=== PATIENT | female | born 1975 | race Caucasian/White ===

== ENCOUNTER 2017-01-05 15:12 | Inpatient (IN) | payer OTHER ==
[~2017-01-05] VITALS: Ht 175.3 cm; Wt 73.3 kg
[2017-01-05 15:44] LABS: BASOPHIL % 0.4 % (0-2); PLATELET COUNT 228 x10^3mcL (130-400); RED CELL DISTRIBUTION WIDTH 13.5 % (11.5-14.5)
[2017-01-05 16:16] LABS: microscopic required? YES; urine erythrocyte 1+ (NEGATIVE)
[2017-01-05 16:31] LABS: CALCIUM 8.7 mg/dL (8.5-10.1); CARBON DIOXIDE 25.8 mmol/L (21-32); CHLORIDE SERUM 108 mmol/L (98-107); CREATININE SERUM 0.7 mg/dL (0.6-1.0); GFR1 > 60 mL/min; GLUCOSE SERUM 111 mg/dL (74-106); POTASSIUM SERUM 3.4 mmol/L (3.5-5.1); SODIUM SERUM 149 mmol/L (136-145)
[2017-01-05 16:32] LABS: AMPHETAMINE QUAL UR NONE DETECTED (NEG <=1000)
[2017-01-05 16:35] LABS: ALBUMIN 4.4 g/dL (3.4-5.0); ALKALINE PHOSPHATASE 63 U/L (46-116); ALT/SGPT 48 U/L (14-59); AST/SGOT 27 U/L (15-37); BILIRUBIN TOTAL 0.27 mg/dL (0.20-1.00); TOTAL PROTEIN, SERUM 8.2 g/dL (6.4-8.2)
[2017-01-05] MEDS ORDERED: TOPAMAX25 MG (16:45)
[2017-01-05] MEDS ORDERED: ATIVAN (16:46)
[2017-01-05] MEDS ORDERED: TRAZODONE100 MG PO (17:04)
[2017-01-05] MEDS ORDERED: CITALOPRAM HYDR20 M1 PO (17:05)
[2017-01-05] MEDS ORDERED: LATUDA20 M1 PO (17:06)
[2017-01-05 18:09] LABS: MAGNESIUM 2.3 mg/dL (1.8-2.4)
[2017-01-05 18:11] LABS: CHOLESTEROL/HDL RATIO 1.9
[2017-01-05 18:14] LABS: T3 TOTAL 1.12 ng/mL
[2017-01-05 18:16] LABS: FREE T4 1.26 ng/dL (0.76-1.46); FREE THYROXINE INDEX 3.6 ug/dL (1.4-4.5); T4(THYROXINE) 11.3 ug/dL (4.7-13.3)
[2017-01-05 18:22] VITALS: BP 102/92
[2017-01-05 19:43] VITALS: BP 88/56
[2017-01-06] VITALS: BP 101/63
[2017-01-06 01:07] VITALS: Ht 175.3 cm; Wt 73.3 kg
[2017-01-06 06:49] LABS: CALCIUM 7.7 mg/dL (8.5-10.1); CARBON DIOXIDE 26.2 mmol/L (21-32); CHLORIDE SERUM 107 mmol/L (98-107); CREATININE SERUM 0.6 mg/dL (0.6-1.0); GFR1 > 60 mL/min; GLUCOSE SERUM 90 mg/dL (74-106); PHOSPHOROUS 3.4 mg/dL (2.5-4.9); POTASSIUM SERUM 4.2 mmol/L (3.5-5.1); SODIUM SERUM 138 mmol/L (136-145)
[2017-01-06 06:55] LABS: BASOPHIL % 0.6 % (0-2); PLATELET COUNT 169 x10^3mcL (130-400); RED CELL DISTRIBUTION WIDTH 13.8 % (11.5-14.5)
[2017-01-06 07:05] VITALS: BP 130/81
[2017-01-06 11:00] VITALS: BP 124/74
[2017-01-06 15:45] VITALS: BP 133/90
[2017-01-06 20:00] VITALS: BP 120/66
[2017-01-07 06:09] VITALS: BP 141/99
[2017-01-07 07:07] LABS: BASOPHIL % 0.4 % (0-2); PLATELET COUNT 152 x10^3mcL (130-400); RED CELL DISTRIBUTION WIDTH 13.4 % (11.5-14.5)
[2017-01-07 07:19] LABS: CARBON DIOXIDE 24.2 mmol/L (21-32)
[2017-01-07 07:29] LABS: CALCIUM 8.1 mg/dL (8.5-10.1); CHLORIDE SERUM 107 mmol/L (98-107); CREATININE SERUM 0.5 mg/dL (0.6-1.0); GFR1 > 60 mL/min; GLUCOSE SERUM 101 mg/dL (74-106); POTASSIUM SERUM 3.9 mmol/L (3.5-5.1); SODIUM SERUM 140 mmol/L (136-145)
[2017-01-07] MEDS ORDERED: ATI1 PO (07:37)
[2017-01-07] MEDS ORDERED: FOL1 PO (07:38)
[2017-01-07] MEDS ORDERED: THI100 PO (07:38)
[2017-01-07] MEDS ORDERED: THERAGRAN-M1 TA4 PO (07:39)
[2017-01-07 09:50] VITALS: BP 168/103
[2017-01-07 13:28] VITALS: BP 142/91
== END 2017-01-07 13:54 | disposition home or self-care (01) | DRG 775 ==
LOC: ED 15:12 → IC 16:44 → DU 01-06 23:05 → MU 01-07 10:20
PROVIDERS: Family Medicine; Specialist; ADMIT Family Medicine
DX: F10.229 Alcohol dependence with intoxication, unspecified (principal); F10.239 Alcohol dependence with withdrawal, unspecified; G92 Toxic encephalopathy; E87.0 Hyperosmolality and hypernatremia; R45.851 Suicidal ideations; Y90.9 Presence of alcohol in blood, level not specified; F43.10 Post-traumatic stress disorder, unspecified; F17.210 Nicotine dependence, cigarettes, uncomplicated; E87.6 Hypokalemia; F41.1 Generalized anxiety disorder; E87.8 Other disorders of electrolyte and fluid balance, not elsewhere classified; F33.2 Major depressive disorder, recurrent severe without psychotic features; X99.8XXA Assault by other sharp object, initial encounter; Z91.5 Personal history of self-harm; Y93.E9 Activity, other interior property and clothing maintenance; Z56.0 Unemployment, unspecified; Y92.098 Other place in other non-institutional residence as the place of occurrence of the external cause; Y99.8 Other external cause status
CPT/HCPCS: 83880; 84439; C9113; G0480; J1630; J2060; J2405; J3411; J3475; J3490; J7030

== ENCOUNTER 2019-03-16 10:24 | Emergency (ER) | payer OTHER ==
[~2019-03-16] VITALS: Ht 175.3 cm; Wt 76.2 kg
[~2019-03-16 10:24] MED LIST: ATI1 PO; ATIVAN; CITALOPRAM HYDR20 M1 PO; FOL1 PO; LATUDA20 M1 PO; THERAGRAN-M1 TA4 PO; THI100 PO; TOPAMAX25 MG; TRAZODONE100 MG PO
[2019-03-16 10:27] VITALS: Ht 175.3 cm; Wt 76.2 kg
[2019-03-16 11:02] LABS: BASOPHIL % 0.7 % (0-2); PLATELET COUNT 243 x10^3mcL (130-400); RED CELL DISTRIBUTION WIDTH 12.9 % (11.5-14.5)
[2019-03-16 11:18] LABS: CALCIUM 8.1 mg/dL (8.5-10.1); CARBON DIOXIDE 20.5 mmol/L (21-32); CHLORIDE SERUM 108 mmol/L (98-107); CREATININE SERUM 0.7 mg/dL (0.6-1.0); GFR1 > 60 mL/min; GLUCOSE SERUM 107 mg/dL (74-106); POTASSIUM SERUM 3.9 mmol/L (3.5-5.1); SODIUM SERUM 143 mmol/L (136-145)
[2019-03-16 11:23] LABS: ALBUMIN 4.3 g/dL (3.4-5.0); ALKALINE PHOSPHATASE 55 U/L (46-116); ALT/SGPT 62 U/L (14-59); AST/SGOT 41 U/L (15-37); BILIRUBIN TOTAL 0.35 mg/dL (0.20-1.00); TOTAL PROTEIN, SERUM 8.3 g/dL (6.4-8.2)
[2019-03-16 11:25] LABS: AMPHETAMINE QUAL UR NONE DETECTED (See below)
[2019-03-16 11:35] LABS: T3 TOTAL 1.59 ng/mL
[2019-03-16 11:56] LABS: FREE T4 1.1 ng/dL (0.76-1.46); FREE THYROXINE INDEX 3.1 ug/dL (1.4-4.5); T4(THYROXINE) 9.6 ug/dL (4.7-13.3)
--- NOTE | 2019-03-17 09:08 | NUR ---
Recieved report from PM shift. Will follow up w/ surrounding Psych facilities to located appropriate placement. Packet has been sent to the following: [facility]
[2019-03-17 12:59] VITALS: BP 127/72
== END 2019-03-17 12:59 | disposition home or self-care (01) ==
LOC: ED 10:24
PROVIDERS: Emergency Medicine
DX: F31.9 Bipolar disorder, unspecified (principal); R45.851 Suicidal ideations
CPT/HCPCS: 36415; 84439; G0480; J1200; J1630; J2060

== ENCOUNTER 2020-06-13 13:00 | Emergency (ER) | payer OTHER ==
[~2020-06-13] VITALS: Ht 175.3 cm; Wt 63.5 kg
[2020-06-13 13:12] VITALS: Ht 175.3 cm; Wt 63.5 kg
[2020-06-13 13:47] LABS: BASOPHIL % 0.8 % (0-2)
[2020-06-13 13:52] LABS: PLATELET COUNT 541 x10^3mcL (130-400); RED CELL DISTRIBUTION WIDTH 15.1 % (11.5-14.5)
[2020-06-13 14:11] LABS: CALCIUM 8.5 mg/dL (8.5-10.1); CARBON DIOXIDE 25.3 mmol/L (21-32); CHLORIDE SERUM 105 mmol/L (98-107); CREATININE SERUM 0.5 mg/dL (0.6-1.0); GFR1 > 60 mL/min; GLUCOSE SERUM 106 mg/dL (74-106); POTASSIUM SERUM 3.4 mmol/L (3.5-5.1); SODIUM SERUM 143 mmol/L (136-145)
[2020-06-13 14:15] LABS: ALBUMIN 3.5 g/dL (3.4-5.0); ALKALINE PHOSPHATASE 73 U/L (46-116); ALT/SGPT 39 U/L (14-59); AST/SGOT 27 U/L (15-37); BILIRUBIN TOTAL 0.2 mg/dL (0.20-1.00); TOTAL PROTEIN, SERUM 7.8 g/dL (6.4-8.2)
[2020-06-13 14:56] LABS: microscopic required? NO
[2020-06-13 15:09] LABS: urine erythrocyte NEGATIVE (NEGATIVE)
[2020-06-13 15:27] LABS: AMPHETAMINE QUAL UR NONE DETECTED (See below)
[2020-06-13 18:23] VITALS: BP 112/73
== END 2020-06-13 18:23 | disposition home or self-care (01) ==
LOC: ED 13:00
PROVIDERS: Specialist
DX: F10.229 Alcohol dependence with intoxication, unspecified (principal); E86.0 Dehydration; F41.9 Anxiety disorder, unspecified; F11.20 Opioid dependence, uncomplicated; Y90.8 Blood alcohol level of 240 mg/100 ml or more
CPT/HCPCS: G0480; J2060; J3411; J3475; J7030